=== PATIENT | female | born 1950 | race Caucasian/White ===

== ENCOUNTER 2016-08-20 21:49 | Emergency (ER) | payer OTHER ==
[2016-08-20 21:59] VITALS: BP 131/90; PULSE 65; TEMP 98; BMI 26.5
--- NOTE | 2016-08-20 23:03 | PDOC ---
[id number] is a 65 year old female with significant history of hypertension who presents to the ED complaining of 6 weeks of nonproductive cough. The patient states she completed and 10 day course of amoxicillin without apparent improvement of her symptoms. She then completed 5 days of erythromycin, last dose was approximately 10 days ago, but her cough persist. The patient denies any fever or chills. She denies nausea, vomiting or diarrhea. She denies chest pain or shortness of breath. She denies sick contacts at home. <Lisha Payne - Last Filed: 08/20/16 23:43> - General History Source: Patient Exam Limitations: No Limitations <Niles Vaughn - Last Filed: 08/30/16 07:30> - General Chief Complaint: Cold Symptoms Stated Complaint: COLD SYMPTOMS Time Seen by Provider: 08/20/16 22:22 Past History <Lisha Payne - Last Filed: 08/20/16 23:43> - Past Medical History Cancer: Yes (OVARIAN CANCER) Hypercholesterolemia: Yes - Psycho/Social/Smoking Cessation Hx Anxiety: No Suicidal Ideation: No Smoking History: Former smoker Have you smoked in the past 12 months: No Information on smoking cessation initiated: No Hx Alcohol Use: No Drug/Substance Use Hx: No Substance Use Type: None <Niles Vaughn - Last Filed: 08/30/16 07:30> - Past Medical History Allergies/Adverse Reactions: Allergies Allergy/AdvReac Type Severity Reaction Status Date / Time SEASONAL ALLERGIES Allergy Uncoded 08/20/16 22:00 Home Medications: Ambulatory Orders Albuterol Sulfate Inhaler - [Ventolin HFA Inhaler -] 1 - 2 inh PO Q4H PRN #1 inhaler 08/21/16 Gabapentin [Neurontin] 100 mg PO TID 08/21/16 Loratadine [Claritin] 10 mg PO DAILY 08/21/16 Rabeprazole Sodium [Aciphex] 20 mg PO BID 08/21/16 Simvastatin [Zocor] 10 mg PO HS 08/21/16 Zolpidem Tartrate [Ambien] 10 mg PO HS 08/21/16 Review of Systems - Review of Systems Able to Perform ROS?: Yes Comments:: 08/20/16 23:45 GENERAL/CONSTITUTIONAL: No fever or chills. No weakness. HEAD, EYES, EARS, NOSE AND THROAT: No change in vision. No ear pain or discharge. No sore throat CARDIOVASCULAR: No chest pain or shortness of breath. RESPIRATORY: +Nonproductive coughx 6 weeks. No wheezing, or hemoptysis. GASTROINTESTINAL: No nausea, vomiting, diarrhea or constipation. GENITOURINARY: No dysuria, frequency, or change in urination. MUSCULOSKELETAL: No joint or muscle swelling or pain. No neck or back pain. SKIN: No rash NEUROLOGIC: No headache, vertigo, loss of consciousness, or change in strength/ sensation. ENDOCRINE: No increased thirst. No abnormal weight change. HEMATOLOGIC/LYMPHATIC: No anemia, easy bleeding, or history of blood clots. ALLERGIC/IMMUNOLOGIC: No hives or skin allergy. <Lisha Payne - Last Filed: 08/20/16 23:43> *Physical Exam - Vital Signs Last Vital Signs Temp Pulse Resp BP Pulse Ox 98.0 F 65 20 131/90 100 08/20/16 21:55 08/20/16 21:55 08/20/16 21:55 08/20/16 21:55 08/20/16 21:55 - Physical Exam Comments: 08/20/16 23:46 GENERAL: Awake, alert, and fully oriented, in no acute distress. Coughing throughout exam. HEAD: No signs of trauma EYES: PERRLA, EOMI, sclera anicteric, conjunctiva clear ENT: Auricles normal inspection, hearing grossly normal, nares patent, oropharynx clear without exudates. Moist mucosa NECK: Normal ROM, supple, no lymphadenopathy, JVD, or masses LUNGS: Breath sounds equal, clear to auscultation bilaterally. No wheezes, and no crackles HEART: Regular rate and rhythm, normal S1 and S2, no murmurs, rubs or gallops ABDOMEN: Soft, nontender, normoactive bowel sounds. No guarding, no rebound. No masses EXTREMITIES: Normal range of motion, no edema. No clubbing or cyanosis. No cords, erythema, or tenderness NEUROLOGICAL: Cranial nerves II through XII grossly intact. Normal speech, normal gait SKIN: Warm, Dry, normal turgor, no rashes or lesions noted. <Lisha Payne - Last Filed: 08/20/16 23:43> - Vital Signs Last Vital Signs Temp Pulse Resp BP Pulse Ox 98.0 F 65 20 131/90 100 08/20/16 21:55 08/20/16 21:55 08/20/16 21:55 08/20/16 21:55 08/20/16 21:55 <Niles Vaughn - Last Filed: 08/30/16 07:30> ED Treatment Course - LABORATORY CBC & Chemistry Diagram: 08/20/16 23:35 08/20/16 23:35 - RADIOLOGY Radiology Studies Ordered: Category Date Time Status CHEST PA & LAT [RAD] Stat Radiology 08/20/16 22:33 Ordered <Niles Vaughn - Last Filed: 08/30/16 07:30> Medical Decision Making - Medical Decision Making 08/20/16 22:59 A portion of this note was documented by scribe services under my direction. I have reviewed the details of the note, within reason, and agree with the documentation with the following case summary and management plan written by me. Patient treated in the ED. Nursing notes are reviewed and incorporated into the medical decision-making. Vital signs reviewed. Peripheral IV access obtained by the nurse, laboratory studies are drawn and sent, reviewed and interpreted by myself. Vital Signs Temp Pulse Resp BP Pulse Ox 98.0 F 65 20 131/90 100 08/20/16 21:55 08/20/16 21:55 08/20/16 21:55 08/20/16 21:55 08/20/16 21:55 65-year-old female with history of hyperlipidemia, gastritis presents with cough for 6 weeks. Patient reports that she has chest congestion and cough. She really has been on 2 courses of antibiotics, including amoxicillin and erythromycin. She reports that the cough is not gotten better. She denies fevers or chills. Denies chest pain or shortness of breath. Stated the symptoms were persistent and came into the ED. We'll obtain a chest x-ray and blood work to evaluate why she is having persistent symptoms. I had asked if the patient is noted any mold or dust or any other inciting factors twitched the patient cannot recall. She denies any new exposures, shampoos or perfumes. She reports that she was with her was not sick. We'll evaluate and reassess. 08/21/16 01:16 CBC, BMP 08/20/16 23:35 08/20/16 23:35 CMP Sodium 143 mmol/L (136-145) 08/20/16 23:35 Potassium 4.2 mmol/L (3.5-5.1) 08/20/16 23:35 Chloride 107 mmol/L (98-107) 08/20/16 23:35 Carbon Dioxide 28 mmol/L (21-32) 08/20/16 23:35 Anion Gap 8 (8-16) 08/20/16 23:35 BUN 12 mg/dL (7-18) 08/20/16 23:35 Creatinine 0.7 mg/dL (0.55-1.02) 08/20/16 23:35 Creat Clearance w eGFR > 60 (>60) 08/20/16 23:35 Random Glucose 88 mg/dL (74-106) 08/20/16 23:35 Calcium 8.7 mg/dL (8.5-10.1) 08/20/16 23:35 Total Bilirubin 0.2 mg/dL (0.2-1.0) 08/20/16 23:35 AST 15 U/L (15-37) 08/20/16 23:35 ALT 20 U/L (12-78) 08/20/16 23:35 Alkaline Phosphatase 116 U/L (45-117) 08/20/16 23:35 Total Protein 7.2 g/dl (6.4-8.2) 08/20/16 23:35 Albumin 4.3 g/dl (3.4-5.0) 08/20/16 23:35 Chest x-ray reviewed. No acute findings or infiltrates. The persistent cough may be a postviral cough. I gave the patient that results. We'll prescribe an inhaler as needed for the cough. I verbalized the patient that her symptoms drastically worsen, she should call her doctor return to the ER. I discussed the physical exam findings, ancillary test results and final diagnoses with the patient. I answered all of the patient's questions. The patient was satisfied with the care received and felt comfortable with the discharge plan and treatment plan. The patient will call their primary care physician within 24 hours to arrange follow-up and will return to the Emergency Department with any new, persistant or worsening symptoms. <Niles Vaughn - Last Filed: 08/30/16 07:30> *DC/Admit/Observation/Transfer - Attestations Scribe Attestion: 08/20/16 23:48 Documentation prepared by Lisha Payne, acting as medical parasitologist for Niles Vaughn MD. <Lisha Payne - Last Filed: 08/20/16 23:43> - Discharge Dispostion Admit: No <Niles Vaughn - Last Filed: 08/30/16 07:30> Diagnosis at time of Disposition: Cough - Discharge Dispostion Disposition: HOME Condition at time of disposition: Stable - Prescriptions Prescriptions: Albuterol Sulfate Inhaler - [Ventolin HFA Inhaler -] 1 - 2 inh PO Q4H PRN #1 inhaler PRN Reason: Cough - Referrals Referrals: STAFF,NOT ON [Primary Care Provider] - - Patient Instructions Printed Discharge Instructions: DI for Cough -- Adult Additional Instructions: Your chest xray and blood work demonstrate no acute findings. Please take 2 puffs of albuterol every 4 hours as needed for cough. Please follow up with your primary care physician. Bring the copy of the results to your doctor.
[2016-08-21 00:21] LABS: BASOPHIL 0.8 % (0-2.0); EOSINOPHIL 3.5 % (0-4.5); MCH 28.6 pg (25.7-33.7); MCHC 34.2 g/dl (32.0-36.0); MEAN CELL VOLUME 83.8 fl (80-96); MEAN PLT VOLUME 10.3 fl (7.5-11.1); NEUTROPHILS 60.2 % (42.8-82.8); PLATELET COUNT 202 K/MM3 (134-434); RDW 14.3 % (11.6-15.6); WHITE BLOOD COUNT 7.4 K/mm3 (4.0-10.0)
[2016-08-21 00:46] LABS: ALBUMIN 4.3 g/dl (3.4-5.0); ALK PHOS 116 U/L (45-117); ANION GAP 8 (8-16); BILIRUBIN,TOTAL 0.2 mg/dL (0.2-1.0); CALCIUM 8.7 mg/dL (8.5-10.1); CO2 28 mmol/L (21-32); COCKROFT - GAULT 75.9475; CREATININE 0.7 mg/dL (0.55-1.02); GLUCOSE,RANDOM 88 mg/dL (74-106); SGOT/AST 15 U/L (15-37); SGPT/ALT 20 U/L (12-78); TOT PROT 7.2 g/dl (6.4-8.2)
== END 2016-08-21 01:51 | disposition home or self-care (01) ==
LOC: JER 21:49
DX: R05 Cough (principal); I10 Essential (primary) hypertension; E78.5 Hyperlipidemia, unspecified
CPT/HCPCS: 36415; 71020-TC; 80053; 85025; 99281-25; 99282-25